=== PATIENT | male | born 1990 | race Two or more races ===

== ENCOUNTER 2024-06-14 11:37 | Emergency (ER) | payer MEDICAID, SELFPAY ==
[2024-06-14 11:37] VITALS: BMI 36.0
[2024-06-14 11:49] VITALS: BP 125/81; PULSE 67; RESP 18; TEMP 36.9; O2SAT 95
--- NOTE | 2024-06-14 12:50 | XR_ITS ---
Examination: PA lateral chest 2 views TECHNIQUE: Upright PA lateral chest 2 views Exam date and time: June 14, 2024 1307 hours INDICATIONS: Coughing today. FINDINGS: Normal heart size Lungs are clear. The osseous structures are intact IMPRESSION: No active disease
--- NOTE | 2024-06-14 12:51 | EDNOTE_ITS ---
Upper Respiratory Inf. RME/HPI General Chief Complaint: Flu Like Symptoms Stated Complaint: SHORTNESS OF BREATH Time Seen by Provider: 06/14/24 11:51 Arrival date/time: 06/14/24 11:37 RME / HPI RME / HPI Narrative: 34-year-old male patient came in for evaluation regarding cough. Patient is a chronic smoker, decided to stop smoking today. Because for the last 6 months has been having worsening cough and for the last few days he noticed some blood streak on the sputum. Denies any chest pain denies any fever denies any shortness of breath. Denies any other complaints. Related Data Home Medications ?Medication ?Instructions ?Recorded ?Confirmed divalproex 500 mg tablet,delayed 500 mg PO BID #0 tabs 01/27/14 08/19/18 release (Depakote) Previous Rx's ?Medication ?Instructions ?Recorded baclofen 5 mg tablet 5 mg PO BID PRN muscle spasm #20 11/04/23 tabs Allergies Allergy/AdvReac Type Severity Reaction Status Date / Time No Known Allergies Allergy Verified 06/14/24 11:41 Review of Systems Review of Systems Narrative Review of Systems: Review of system reviewed and within normal limits except mentioned in HPI ED Exam Narrative Physical exam: VITAL SIGNS: Reviewed. GENERAL APPEARANCE: Alert and interactive, follows commands, no acute distress, HEAD AND FACE: Non-traumatic. ENT: PERRL, pink conjunctivitis, eyelid no trauma, Mucous membrane moist. NECK: Supple, nontender, no nuchal rigidity. CHEST: No tenderness, no crepitus, no paradoxical movement, no retractions. LUNGS: Clear, well ventilated, symmetric, no rales, no wheezing, no ronchi, no stridor, good breath sounds bilaterally. HEART: Regular rate, regular rhythm, no murmur, no gallops. ABDOMEN: Soft, positive bowel sounds, nondistended, no guarding, nontender, no rebound, no masses, RECTAL: Deferred. GENITAL: Deferred. NEUROLOGICAL: Gross motor function intact sensory function intact, Appropriate for age. MUSCULOSKELETAL: low back nontender, full range of motion. EXTREMITIES: Nontender, full range of motion. SKIN: Color pink, dry, no rash, no lacerations, no abrasions, no contusions. LYMPHATICS: Deferred. Course Quality Measures none Orders Category Date Time Status XR chest 2V Stat Exams 06/14/24 12:50 Completed Vital Signs Vital signs: Vital Signs Temperature 98.4 F 06/14/24 11:49 Pulse Rate 67 06/14/24 11:49 Respiratory Rate 18 06/14/24 11:49 Blood Pressure 125/81 06/14/24 11:49 Pulse Oximetry (%) 95 06/14/24 11:49 Oxygen Delivery Method Room Air 06/14/24 11:49 Upper Respiratory Infection MDM Narrative MDM Narrative:: 34-year-old male patient came in for evaluation regarding cough. Patient is a chronic smoker, decided to stop smoking today. Because for the last 6 months has been having worsening cough and for the last few days he noticed some blood streak on the sputum. Denies any chest pain denies any fever denies any shortness of breath. Denies any other complaints. Patient chest x-ray came back unremarkable. Results discussed with the patient. Patient was advised to stop completely smoking cigarettes. Patient appears nontoxic and hemodynamically stable. Patient discharged home and instructed to follow-up with primary care provider in 24 to 48 hours. Instructed to return to the emergency department immediately if worsening of symptoms Patient data External records reviewed:: None Clinical information provided by:: none Social determinants that could affect healthcare access:: none Patient has the following chronic illnesses:: Cigarette smoker How is presenting disease/condition affected by chronic disease/condition?: exacerbated by Evaluation data The following diagnostics were reviewed and interpreted by me:: radiology exam(s) Lab and/or radiology exams considered but not ordered:: None Interpretation Summary: I personally reviewed and interpreted the x-ray of this patient. There is no a cute abnormalities found, no infiltrates no pneumothorax no hemothorax normal chest x-ray. Review of other structures was without significant abnormal findings also. I additionally reviewed the radiologist report and agree with the interpretation. Medications / Prescriptions Medications or Prescriptions considered but not ordered:: None Medication administrations:: None Consultations Consultation(s) initiated? (list below): No Diagnosis Upper Respiratory Differential Diagnosis: upper respiratory infection, viral infection and bronchitis Most likely diagnosis given after review of the tests above:: Smoker's cough Admission Indicated Admission indicated?: not indicated Admission Request Was there a request for admission?: No Disposition Plan Disposition Plan: Discharge Discharge Attestation Discharge Attestation: The patient was given an opportunity to ask questions and understood the discharge instructions. Discharge instructions specifically effects, indications for sooner follow up or return to the emergency department, and the expected course of current diagnosis. Patient condition: Stable Discharge Plan Plan Patient Disposition: HOME (Self Care) Disposition Comment: Stable Prescriptions/Referrals Prescriptions/Med Rec: No Action divalproex [Depakote] 500 MG tablet,delayed release (DR/EC) 500 mg PO BID Qty: 0 baclofen 5 mg tablet 5 mg PO BID PRN (Reason: muscle spasm) Qty: 20 0RF Referrals: Pedro Luis Holcomb PA-C [Primary Care Provider] - In 1 week Problem List Clinical Impression: Smokers' cough Patient/Caregiver Discharge Instructions Discharge Activity: activity as tolerated Education Materials: Preventing Common Respiratory ... Additional Instructions: Thank you for the opportunity for serving you today. You are stable for disc harged . You are advised to: Follow-up with your PCP in 1 to 2 days Return to ED for worsening of symptoms Increase oral fluids Please stop smoking cigarettes and your cough will go away on its own Print Language: Setswana Stand Alone Forms: Chely Award Info., Patient Portal Info Letter AYAN/GAGE Supervising Physician ROSEMARY Supervising Physician: MD Antonia
== END 2024-06-14 15:40 | disposition home or self-care (01) ==
PROVIDERS: Emergency Provider Emergency Medicine; PCP Physician Assistant
DX: J41.0 Simple chronic bronchitis (principal); F17.200 Nicotine dependence, unspecified, uncomplicated
CPT/HCPCS: 71046; 99283

== ENCOUNTER 2024-09-29 10:19 | Emergency (ER) | payer MEDICAID, SELFPAY ==
[2024-09-29 10:19] VITALS: BMI 39.1
[2024-09-29 10:48] VITALS: BP 125/76; PULSE 55; RESP 18; TEMP 36.7; O2SAT 98
--- NOTE | 2024-09-29 10:52 | XR_ITS ---
Examination: Lumbar spine 3 views Technique one AP lateral coned lateral lower lumbar spine 3 views Date and time: September 29, 2024 1116 hrs. Indications: Patient fell 2 days ago with injury to the lower back, lower back pain. Findings: No acute lumbar fracture Minimal disc narrowing L5-S1 No spondylolisthesis Impression: No acute lumbar fracture
--- NOTE | 2024-09-29 10:55 | EDNOTE_ITS ---
ED Fall Injury RME/HPI General Chief Complaint: Fall Stated Complaint: LOWER BACK PAIN S/P FALL 5D AGO Time Seen by Provider: 09/29/24 10:52 Arrival date/time: 09/29/24 10:19 This is a case of 34-year-old male who came in in the emergency room due to lower back pain and injury history of present illness started 5 days prior to arrival in the emergency room patient was walking down to the stairs to step when the patient slipped and fell landed on his lower back since then patient is complaining of lower back pain denies any head neck chest or abdominal injury no loss of consciousness denies any numbness weakness tingling sensation incontinence to urine or stool Limitations: no limitations Related Data Home Medications ?Medication ?Instructions ?Recorded ?Confirmed divalproex 500 mg tablet,delayed 500 mg PO BID #0 tabs 01/27/14 08/19/18 release (Depakote) Previous Rx's ?Medication ?Instructions ?Recorded baclofen 5 mg tablet 5 mg PO BID PRN muscle spasm #20 11/04/23 tabs cyclobenzaprine 10 mg tablet 10 mg PO BID PRN muscle s pasm #10 09/29/24 tabs ibuprofen 800 mg tablet 800 mg PO Q8H PRN pain #20 t abs 09/29/24 Allergies Allergy/AdvReac Type Severity Reaction Status Date / Time No Known Allergies Allergy Verified 09/29/24 10:22 Review of Systems Review of Systems Systems Reviewed: All systems reviewed, normal except as documented Constitutional Constitutional: Reports system reviewed and no additional complaints, except as documented ENT Ears, Nose, Mouth, and Throat: Denies neck pain Cardiovascular Cardiovascular: Reports system reviewed and no additional complaints, except as documented Respiratory Respiratory: Reports system reviewed and no additional complaints, except as documented Gastrointestinal Gastrointestinal: Reports system reviewed and no additional complaints, except as documented and Denies abdominal pain Musculoskeletal Musculoskeletal: Reports system reviewed and no additional complaints, except as documented, Denies abnormal gait, Denies arthralgias, Denies atrophy, Reports back pain, Denies deformity, Denies joint swelling, Denies limited range of motion, Denies loss of height, Denies muscle cramps, Denies muscle weakness, Denies myalgias, Denies neck pain, Denies numbness, Denies radiating pain into limb, Denies stiffness and Denies tingling Neurologic Neurologic: Reports system reviewed and no additional complaints, except as documented, Denies abnormal gait, Denies numbness and Denies tingling Past Medical History Past Medical History NEUROLOGIC: Negative Cerebrovascular Accident, Alzheimer's Disease or Seizures CARDIAC: Negative Cardiac Disorders, Myocardial Infarction or Congestive Heart Failure RESPIRATORY: Negative Chronic Obstructive Pulmonary Disease (COPD) or Asthma GASTROINTESTINAL: Negative Gastrointestinal Disorders, Liver Cancer or Pancreatic Cancer GENITOURINARY: Negative Genitourinary Disorders or Renal Disease MUSCULOSKELETAL: Negative Musculoskeletal Disorders or Muscular Dystrophy ENT: Negative Blind or Deafness ENDOCRINE: Negative Diabetes Mellitus Type 1 or Diabetes Mellitus Type 2 HEMATOLOGIC: Negative Blood Disorders or Sickle Cell Disease PSYCHO/SOCIAL: Positive Psychiatric Problems, Recreational Drug Use, Bipolar Disorder, Depression, Anxiety, Self-Mutilation and Attention Deficit Hyperactivity Disorder OTHER HISTORY: Negative Developmental Delay, Blood Transfusions or Anesthesia Reactions Social History SMOKING STATUS: Current some day smoker SUBSTANCE USE: marijuana OCCUPATION: Works on [employer] Exam General Limitations: Present no limitations General appearance: Present alert and in no apparent distress Head Head exam: Present atraumatic Eye Eye exam: Present normal appearance, PERRL and EOMI ENT ENT exam: Present normal exam, normal oropharynx and mucous membranes moist Neck Neck exam: Present normal inspection, full ROM and trachea midline; Absent tenderness, meningismus, lymphadenopathy or thyromegaly Chest Chest inspection: Present normal inspection and symmetric chest wall rise Respiratory Respiratory exam: Present normal lung sounds bilaterally; Absent respiratory distress, wheezes, stridor, accessory muscle use or prolonged expiratory phase Cardiovascular Cardiovascular exam: Present regular rate, normal rhythm and normal heart sounds; Absent bradycardia, tachycardia, systolic murmur or diastolic murmur Abdominal Exam Abdominal exam: Present soft and normal bowel sounds; Absent distention, tenderness, guarding, rebound or rigidity Extremities Exam Extremities exam: Present normal inspection and full ROM Back Exam Back exam: Present normal inspection, full ROM and tenderness (Mild to moderate tenderness L1-L5 no paraspinal tenderness no paravertebral tenderness straight leg exam is negative and normal no CVA tenderness no crepitation no deformity no redness); Absent CVA tenderness (R), CVA tenderness (L), muscle spasm, paraspinal tenderness, vertebral tenderness, rashes, sciatic notch tenderness (R), sciatic notch tenderness (L), straight leg raise (R) or straight leg raise (L) Neurological Exam Neurological exam: Present alert, oriented X3, CN II-XII intact, normal gait and reflexes normal; Absent motor sensory deficit Psychiatric Psychiatric exam: Present normal affect and normal mood Skin Skin exam: Present warm, dry, intact and normal color Course Quality Measures none Orders Category Date Time Status XR lumbar spine 2-3V Stat Exams 09/29/24 10:52 Completed Ketorolac Inj [Toradol Inj] Med 09/29/24 11:53 Discontinued 30 mg IM X1 ONE Vital Signs Vital signs: Vital Signs Temperature 98.0 F 09/29/24 10:48 Pulse Rate 55 L 09/29/24 10:48 Respiratory Rate 18 09/29/24 10:48 Blood Pressure 125/76 09/29/24 10:48 Pulse Oximetry (%) 98 09/29/24 10:48 Oxygen Delivery Method Room Air 09/29/24 10:48 Oxygen saturation 98% in room air normal Fall MDM Narrative MDM Narrative:: This is a case of 34-year-old male who came in in the emergency room due to lower back pain and injury history of present illness started 5 days prior to arrival in the emergency room patient was walking down to the stairs to step when the patient slipped and fell landed on his lower back since then patient is complaining of lower back pain denies any head neck chest or abdominal injury no loss of consciousness denies any numbness weakness tingling sensation incontinence to urine or stool physical examination patient is awake alert oriented not in distress nontoxic looking mild to moderate tenderness on the lumbar area no crepitation no deformity no swelling no redness no paravertebral tenderness no paraspinal tenderness leg raise exam is normal no CVA tenderness x-ray of the lumbar area no fracture no dislocation no subluxation but with DDD lumbar patient was given Toradol here in the emergency room which patient condition markedly improved patient was advised to follow-up with PCP to be referred to neurosurgeon for DDD lumbar for possible MRI to rule out herniated disc and warm compress cold compress as advised as needed for pain at the time of exam no signs and symptoms of cauda equina no numbness no weakness no tingling sensation no incontinence to urine or stool Patient was discharged with comfortable condition walking with stable gait. Patient verbalized no further complains explained diagnosis and answered patient question. Patient is comfortable with the proposed management plan including the need to follow up with his/her primary care physician and any specialist if applicable Discussed patient for any urgent condition or worsening sx, He/She needed to go to emergency room immediately or call 911. Patient acknowledge the responsibility to follow up as instructed and to monitor her/his symptoms. For any persistence of the symptoms for more than 3-5 days return precaution advised. Discussed the result of the test and was given printed discharge instruction Patient data External records reviewed:: [facility] previous records Clinical information provided by:: none Social determinants that could affect healthcare access:: none Patient has the following chronic illnesses:: None How is presenting disease/condition affected by chronic disease/condition?: no chronic disease Evaluation data The following diagnostics were reviewed and interpreted by me:: radiology exam(s) Lab and/or radiology exams considered but not ordered:: Reviewed Interpretation Summary: Reviewed Medications / Prescriptions Medications or Prescriptions considered but not ordered:: Given Medication administrations:: Medication Administration History Discontinued Medications Ketorolac Tromethamine (Ketorolac Inj 60 Mg/2 Ml Vial) 30 mg IM X1 ONE Stop: 09/29/24 11:54 Given Consultations Consultation(s) initiated? (list below): No Diagnosis Fall Differential Diagnosis: other (Lumbar spine) Most likely diagnosis given after review of the tests above:: Lumbar spine Admission Indicated Admission indicated?: not indicated Explain why admission is indicated or not indicated:: Not indicated Admission Request Was there a request for admission?: No Admission Attestation Admission request attestation: Not indicated Disposition Plan Disposition Plan: Discharge Discharge Attestation Discharge Attestation: The patient and all family members were given an opportunity to ask questions and understood the discharge instructions. Discharge instructions specifically effects, indications for sooner follow up or return to the emergency department, and the expected course of current diagnosis. Patient condition: Stable Discharge Plan Plan Patient Disposition: HOME (Self Care) Patient condition on transfer: Stable Prescriptions/Referrals Prescriptions/Med Rec: New ibuprofen 800 mg tablet 800 mg PO Q8H PRN (Reason: pain) Qty: 20 0RF cyclobenzaprine 10 mg tablet 10 mg PO BID PRN (Reason: muscle spasm) Qty: 10 0RF Rx Instructions: Do not drive No Action divalproex [Depakote] 500 MG tablet,delayed release (DR/EC) 500 mg PO BID Qty: 0 baclofen 5 mg tablet 5 mg PO BID PRN (Reason: muscle spasm) Qty: 20 0RF Problem List Clinical Impression: Lumbar sprain, DDD (degenerative disc disease), lumbar Patient/Caregiver Discharge Instructions Education Materials: Staff Ed: Back Safety, ED Back Sprain/Strain Additional Instructions: Follow-up with your primary care physician in 2 days for reevaluation and to be referred to neurosurgeon for further evaluation and treatment of your DDD lumbar for possible MRI to rule out herniated disc worsening symptoms or any emergent concerns such as numbness weakness tingling sensation incontinence to urine or stool call 911 or go to the nearest emergency room ice pack and warm compress as needed Print Language: [place] Citizen Stand Alone Forms: Chely Award Info., Patient Portal Info Letter PA/VENETIAN [employer] WORK[employer] Supervising Physician PA/[employer]IAN [employer] WORK[employer] Supervising Physician: dr barnes
[2024-09-29] MEDS: KETOROLAC INJ 60 MG/2 ML VIAL 30 MG IM (12:00)
[2024-09-29 12:06] VITALS: BP 136/70; PULSE 77; RESP 20; TEMP 36.7; O2SAT 97
== END 2024-09-29 12:06 | disposition home or self-care (01) ==
LOC: SERX 12:08
PROVIDERS: Emergency Provider Family Medicine; PCP Family Medicine
DX: S33.5XXA Sprain of ligaments of lumbar spine, initial encounter (principal); M51.360 Other intervertebral disc degeneration, lumbar region with discogenic back pain only; W01.0XXA Fall on same level from slipping, tripping and stumbling without subsequent striking against object, initial encounter; Y93.01 Activity, walking, marching and hiking
CPT/HCPCS: 72100; 96372; 99283; J1885

== ENCOUNTER 2024-11-10 22:25 | Emergency (ER) | payer MEDICAID, SELFPAY ==
[2024-11-10 22:26] VITALS: BMI 39.5
[2024-11-10 22:36] VITALS: BP 151/95; PULSE 93; RESP 20; TEMP 36.8; O2SAT 97
--- NOTE | 2024-11-10 22:41 | PD.EDPSYCH ---
ED Psych RME/HPI General Chief Complaint: Psychiatric Symptoms Stated Complaint: SUICIDAL THOUGHTS Time Seen by Provider: 11/10/24 23:03 Arrival date/time: 11/10/24 22:25 RME / HPI RME / HPI Narrative: This section includes all my notes and documentations, including HPI, PE, and ED course. Kei Sanchez MD HPI: 34yo male here for agitation, hallucinations, and SI. Mom states the patient has been progressively more agitated for the last one week. Patient vocalized having SI today, stating he wants to hang himself or harm himself with a knife. He does have HI. Mom notes the patient has been more paranoid and is not taking his psychiatric medications (Depakote and Abilify). Patient has been coughing. He is a heavy tobacco smoker and last used methamphetamines 3 days ago. No other complaints reported. ROS: All negative except as documented in HPI. Physical Exam: General: Alert and oriented. Severely agitated. Eyes: Conjunctivae and lids clear. ENT: No nasal congestion. Neck: Supple. Heart: RRR. Lungs: No respiratory distress. Good air movement. No rhonchi, wheezing, rales. Abdomen: Soft and nontender. Normal bowel sounds. No distension. No rebound or guarding. Back: No CVA tenderness. Skin: Warm and dry. Neuro: Alert and oriented X 3. Blood test unremarkable. Urine specimen pending. Treatment here included Xanax. Patient slept during the rest of my shift. Patient placed on 1799 hold. Entered order for evaluation by our ED Neighborhood Planner. At 6 AM on 11/11/2024, the care of the patient was transferred to Dr. Ordoñez. Kei Sanchez MD Related Data Home Medications ?Medication ?Instructions ?Recorded ?Confirmed divalproex 500 mg tablet,delayed 500 mg PO DAILY #0 tabs 01/27/14 11/10/24 release (Depakote) aripiprazole 10 mg tablet 10 mg PO DAILY 11/10/24 11/10/24 Allergies Allergy/AdvReac Type Severity Reaction Status Date / Time No Known Allergies Allergy Verified 11/10/24 22:32 Review of Systems Review of Systems Systems Reviewed: All systems reviewed, normal except as documented Past Medical History Past Medical History NEUROLOGIC: Negative Cerebrovascular Accident, Alzheimer's Disease or Seizures CARDIAC: Negative Cardiac Disorders, Myocardial Infarction or Congestive Heart Failure RESPIRATORY: Negative Chronic Obstructive Pulmonary Disease (COPD) or Asthma GASTROINTESTINAL: Negative Gastrointestinal Disorders, Liver Cancer or Pancreatic Cancer GENITOURINARY: Negative Genitourinary Disorders or Renal Disease MUSCULOSKELETAL: Negative Musculoskeletal Disorders or Muscular Dystrophy ENT: Negative Blind or Deafness ENDOCRINE: Negative Diabetes Mellitus Type 1 or Diabetes Mellitus Type 2 HEMATOLOGIC: Negative Blood Disorders or Sickle Cell Disease PSYCHO/SOCIAL: Positive Psychiatric Problems, Recreational Drug Use, Bipolar Disorder, Depression, Anxiety, Self-Mutilation and Attention Deficit Hyperactivity Disorder OTHER HISTORY: Negative Developmental Delay, Blood Transfusions or Anesthesia Reactions Social History SMOKING STATUS: Current every day smoker SUBSTANCE USE: marijuana OCCUPATION: Works on [employer] ED Exam Narrative Physical exam: As noted in HPI. Course Quality Measures none Orders Category Date Time Status 1798 Psychiatric Hold NOW Care 11/10/24 23:45 Ordered Bedside COVID-19 Antigen Test NOW Care 11/10/24 23:33 Active Bedside Influenza A&B Antigen Test NOW Care 11/10/24 23:[address] Screening NOW Care 11/10/24 23:33 Active Referral Psych Eval Stat Cons 11/10/24 23:[address] chest w con Stat Exams 11/10/24 23:33 Ordered Acetaminophen Stat Lab 11/10/24 23:15 Completed Alcohol, Blood Medical Stat Lab 11/10/24 23:15 Completed Bilirubin,Direct Stat Lab 11/10/24 23:15 Completed CBC Stat Lab 11/10/24 23:15 Completed CMP [Comprehensive Metabolic Panel] Stat Lab 11/10/24 23:15 Completed Drug Screen,Urine Stat Lab 11/10/24 23:34 Ordered Free T4 (Free Thyroxine) Stat Lab 11/10/24 23:15 Completed Magnesium Stat Lab 11/10/24 23:15 Completed PTT [Partial Thromboplastin Time] Stat Lab 11/10/24 23:15 Completed Salicylate Stat Lab 11/10/24 23:15 Completed UA, C/S IF [Urinalysis, C/S if Indicated] Stat Lab 11/10/24 23:34 Ordered ALPRazoLAM [Xanax] Med 11/10/24 23:57 Discontinued 2 mg PO X1 ONE Vital Signs Vital signs: Vital Signs Temperature 98.3 F 11/10/24 22:36 Pulse Rate 93 11/10/24 22:36 Respiratory Rate 20 11/10/24 22:36 Blood Pressure 151/95 H 11/10/24 22:36 Pulse Oximetry (%) 97 11/10/24 22:36 Oxygen Delivery Method Room Air 11/10/24 22:36 Psych MDM Narrative MDM Narrative:: 34yo male here for agitation, hallucinations, and SI. Mom states the patient has been progressively more agitated for the last one week. Patient vocalized having SI today, stating he wants to hang himself or harm himself with a knife. He does have HI. Mom notes the patient has been more paranoid and is not taking his medications (Depakote and Abilify). Patient has been coughing. He is a heavy tobacco smoker and last used methamphetamines 3 days ago. No other complaints reported. Patient data External records reviewed:: [facility] previous records (Per chart review, patient was seen here on 09/29/24 for DDD (degenerative disc disease), lumbar.) Clinical information provided by:: patient Social determinants that could affect healthcare access:: other (specify) (tobacco and methamphetamine use; history of schizophrenia and bipolar disorder) Patient has the following chronic illnesses:: bipolar disorder, schizophrenia, ADHD, depression How is presenting disease/condition affected by chronic disease/condition?: caused by Evaluation data The following diagnostics were reviewed and interpreted by me:: lab results Lab and/or radiology exams considered but not ordered:: none Interpretation Summary: Blood tests unremarkable. Urine specimen pending. Medications / Prescriptions Medications or Prescriptions considered but not ordered:: none Medication administrations:: Medication Administration History Discontinued Medications Alprazolam (Alprazolam 0.25 Mg Tablet) 2 mg PO X1 ONE Stop: 11/10/24 23:58 Last Admin: 11/11/24 00:13 Dose: 2 mg Documented By: ZAC Xanax Consultations Consultation(s) initiated? (list below): No Diagnosis Psych Differential Diagnosis: acute psychosis, chronic schizophrenia, suicidal ideation, bipolar disorder, depression, drug-induced psychotic disorder and acute anxiety Most likely diagnosis given after review of the tests above:: Psychosis versus Blanca. Admission Indicated Admission indicated?: not indicated Explain why admission is indicated or not indicated:: No psychiatric service here at this facility. Admission Request Was there a request for admission?: No Disposition Plan Disposition Plan: other (specify) (Signed out to Dr. Ordoñez at 6 AM.) Discharge Plan Prescriptions/Referrals Prescriptions/Med Rec: No Action divalproex [Depakote] 500 MG tablet,delayed release (DR/EC) 500 mg PO DAILY Qty: 0 aripiprazole 10 mg tablet 10 mg PO DAILY Referrals: No Primary/Family,Physician [Primary Care Provider] - In 1 week Problem List Clinical Impression: Acute psychosis Patient/Caregiver Discharge Instructions Print Language: Romanian
--- NOTE | 2024-11-10 23:20 | PC.NURSE ---
PT BROUGHT IN BY MOM FOR FEELING SUICIDAL. PT IS NOT MED COMPLIANT AND HE USED METH 3 DAYS AGO. HE REPORTS BEING HOSPITALIZED FOR 15 DAYS AT [facility] IN 2011. PT STATES HE USED TO USE DRUGS REGULARLY, BUT WAS CLEAN UP UNTIL 3 DAYS AGO.
--- NOTE | 2024-11-10 23:26 | PC.NURSE ---
1:1 SITTER AT BEDSIDE
--- NOTE | 2024-11-10 23:33 | XR_ITS ---
Examination: CT chest with intravenous contrast 2-D sagittal and coronal reconstructions Exam date and time: November 11, 2024, 0226 hours INDICATIONS: Chest pain shortness of breath today CTDI:vol (mGy) 16.5 DLP: (mGycm) 597 Technique: Multiple axial sections of the thorax have been obtained. Sections have been obtained, 3 mm slice thickness. Mediastinal and lung density settings have been obtained. Intravenous contrast administered, 60 cc Isovue 370. 2-D sagittal, coronal images obtained. Low dose protocols were performed. One or more of the following dose reduction techniques were used; automated exposure control, adjustment of the mA and/or KV according to patient size, use of iterative reconstruction technique. Findings: No thoracic aortic aneurysmal dilatation No pulmonary artery filling defects No paratracheal tracheobronchial or bronchopulmonary adenopathy. No pneumonia or pulmonary edema or pleural disease 2 mm pulmonary nodule right lower lobe Diffuse fatty infiltration throughout the liver No gallstones No pancreatic mass, no hydronephrosis IMPRESSION: Negative for pulmonary artery emboli No pneumonia, pulmonary edema or pleural disease 2 mm pulmonary nodule right lower lobe, recommend three-month follow-up PA lateral chest x-ray
[2024-11-11 00:03] LABS: Basophils # (Auto) 0.1 Thou/mm3 (0.0-0.2); Basophils % (Auto) 1 % (0-2.5); Eosinophils # (Auto) 0.4 Thou/mm3 (0.0-0.5); Eosinophils % (Auto) 4 % (0-10); Hematocrit 42.2 % (41.0-53.0); Hemoglobin 14.5 g/dL (13.5-16.0); Immature Granulocytes Auto 0.05 Thou/mm3 (0.00-0.00); Lymphocytes # (Auto) 2.8 Thou/mm3 (1.0-4.8); Lymphocytes % (Auto) 32 % (10-50); Mean Corpuscular HGB Conc 34.4 g/dl (31.0-37.0); Mean Corpuscular Hemoglobin 31.9 pg (25.0-35.0); Mean Corpuscular Volume 93 fL (80-100); Monocytes # (Auto) 0.9 Thou/mm3 (0.0-0.8); Monocytes % (Auto) 10 % (0-12); Neutrophils # (Auto) 4.5 Thou/mm3 (1.8-7.7); Neutrophils % (Auto) 52 % (37-80); Nucleated Red Blood Cell # 0.00 Thou/mm3 (0.00-0.00); Nucleated Red Blood Cell % 0 /100 WBC (0); Platelet Count 217 Thou/mm3 (140-440); RDW Standard Deviation 42.4 fL (35.1-43.9); Red Blood Count 4.55 Miln/mm3 (4.50-5.90); White Blood Count 8.6 Thou/mm3 (3.8-10.6)
[2024-11-11 00:20] LABS: Partial Thromboplastin Time 28.5 Seconds (22.0-36.0)
[2024-11-11 00:30] LABS: Acetaminophen < 2.0 mcg/mL (10.0-20.0); Alanine Aminotransferase 50 U/L (10-49); Albumin, Serum 4.4 gm/dL (3.5-5.0); Albumin/Globulin Ratio 1.9 (1.2-2.2); Alcohol, Blood Medical < 3.0 mg/dL (0-10.0); Alkaline Phosphatase 51 U/L (46-116); Anion Gap 8 (7-16); Aspartate Amino Transferase 33 U/L (0-34); BUN/Creatinine Ratio 10 Ratio (12-20); Bilirubin,Direct 0.1 mg/dL (0.0-0.3); Bilirubin,Total 0.4 mg/dL (0.3-1.2); Blood Urea Nitrogen 9 mg/dL (9-23); Calcium 9.4 mg/dL (8.3-10.6); Calcium (Corrected) 9.4 mg/dL (8.5-10.1); Carbon Dioxide 23.9 mMol/L (20.0-31.0); Chloride 110 mMol/L (98-107); Creatinine (Component) 0.9 mg/dL (0.6-1.3); Estimated Creatinine Clearance 144.3 mL/min (>60); Free T4 (Free Thyroxine) 1.05 ng/dL (0.89-1.76); Globulin 2.3 gm/dL (2.3-3.5); Glucose 102 mg/dL (74-106); Magnesium 1.8 mg/dL (1.6-2.6); Osmolality,Calculated 281 (275-295); Potassium 3.9 mMol/L (3.4-5.1); Salicylate < 3.0 mg/dL; Sodium 142 mMol/L (136-145); Total Protein 6.7 gm/dL (5.7-8.2); eGFR > 60 See Note
[2024-11-11 02:37] LABS: Collection Type, Urine Clean Catch; WBC,Urine 0 /hpf (0-5)
[2024-11-11 02:40] VITALS: BP 131/80; PULSE 75; RESP 18; TEMP 36.5; O2SAT 97
[2024-11-11 03:02] LABS: Bilirubin,Urine Negative (Negative); Blood,Urine Negative (Negative); Clarity,Urine Clear (Clear/Hazy); Color,Urine Lt-Yellow (Lt Yel-Yel); Culture Indicated,Urine Not Indicated; Glucose, Urine Negative (Negative); Ketones,Urine Negative (Negative); Leukocyte Esterase,Urine Negative (Negative); Nitrite,Urine Negative (Negative); PH,Urine 6.0 (5.0-7.0); Protein,Urine Negative (Neg - Trace); RBC,Urine 1 /hpf (0-3); Specific Gravity,Urine 1.008 (1.001-1.035); Squamous Epithelial Cell,Urine < 1 /hpf (0-5); Urobilinogen,Urine Negative mg/dL (0.0-1.0)
[2024-11-11 03:12] LABS: Amphetamine/Methamp Scrn,U Negative (Negative); Barbiturate Screen,Urine Negative (Negative); Benzodiazepines Screen,Urine Positive (Negative); Benzoylecgonine Screen, Ur Negative (Negative); Fentanyl Screen,Urine Negative (Negative); Opiate Screen,Urine Negative (Negative); THC Screen,Urine Positive (Negative)
--- NOTE | 2024-11-11 03:15 | PRELIM_ITS ---
CT scan of the chest with intravenous contrast (axial sections with sagittal and coronal reformats) November 11, 2024 0226 hours Clinical History: SOB Comparison: None. Findings: There is no filling defect within the pulmonary artery divisions to suggest pulmonary thromboembolism. The mediastinum demonstrates no evidence of mass or lymphadenopathy. The thoracic aorta is unremarkable. There is no pericardial effusion. The lungs are clear. No evidence of pleural effusion or pneumothorax. The osseous structures are unremarkable. Hepatomegaly. Impression: No CT evidence of pulmonary thromboembolism or other acute intrathoracic pathology. Hepatomegaly. Report Electronically Signed By: Theo Santos 11/11/2024 3:14:30 AM [EST]
[2024-11-11 06:41] VITALS: BP 132/68; PULSE 63; RESP 18; TEMP 36.4; O2SAT 95
--- NOTE | 2024-11-11 07:00 | PC.NURSE ---
PT SLEEPING AT THI TIME AND WILL ALLOW PT TO SLEEP
--- NOTE | 2024-11-11 07:01 | PD.EDADDENDU ---
Emergency Room Addendum Addendum Narrative: 0600: Care assumed from Dr. Sanchez, the previous shift emergency physician. Past medical, surgical, social and family history reviewed. Vitals and home medications reviewed. I will assume the care of the patient at this time, pending mental health evaluation. Please refer to the emergency department record for history and examination from initial visit.?The following addendum documentation note is intended to reflect any pending information, findings, or radiology results not included in the patient?s initial chart. 0700: Patient has been medically cleared for mental health evaluation. 0850: SW has met with and evaluated the patient. At this time patient placed on a 5150 hold pending LPS facility placement. Patient has been accepted for transfer by Dr. Patterson at [facility]. 1600: EMS here to transfer patient. He has remained stable through ED course.
--- NOTE | 2024-11-11 08:14 | PC.NURSE ---
LICENSED EMBALMER IN TO SEE PT AT 0800 AND STATES KEEPING PT ON 5150 HOLD. PT WALKED TO AND FROM BATHROOM WITHOUT ASSIST WITH SITTER WALKING WITH HIM. GIVEN MEAL TRAY. WHEN ASKED PT WHY HE'S HERE, PT STARTS TALKING ABOUT NO ONE LISTENS TO ME. MY BROTHER IS A TOP TRIMMER AND I HOPE HE GETS ATTACKED. I DON'T WANT TO ALONE. MY FIANCEE LEFT ME AND MY GIRL FRIEND LEFT ME, I DON'T KNOW WHY. THEY TELL ME TO CLEAN UP AND YELL AT ME ALL THE TIME AND I JUST WANT A JOB. I'VE BEEN OUT OF WORK FOR A YEAR AND NO ONE WILL HIRE ME. PT WAS VERY LOUD AND ANGRY. WOULD NOT LOOK NURSE IN THE FACE.
[2024-11-11 08:42] VITALS: BP 116/80; PULSE 59; RESP 18; TEMP 36.4; O2SAT 96
--- NOTE | 2024-11-11 08:46 | PC.CC ---
Pt is a 23-year-old male who presented to the ER on 11/11/2024 requesting a voluntary mental health evaluation. ASW-Maria D Mukherjee met with patient [id number] to complete assessment. ASW introduced self, role, and reason for assessment. ASW disclosed limits of confidentiality as well. Patient appeared alert and oriented to self, place, and situation. Patient was pleasant; his mood appeared angry and emotional accompanied with crying; his behavior appeared dye and upset that no one is paying attention to his triggers. . Patient?s thought process was linear and organized. Pt was viewed to be paranoid and delusional. Pt reports that he is diagnosed with Bipolar II and should be taking Depakote and Abilify as that was prescribed by his PCP Dr. Mcconnell at [facility]. Pt states he does not see a mental health therapist for his mental issues. Pt admits to smoking Meth a few days ago and admits to smoking marijuana daily, as well as drinking beer. Pt reports what led him to the hospital last night is that his thoughts of suicide were explosive and he could not control it. He reported he was pacing in and outside of his home, yelling and talking to himself saying he was going to shoot himself. Because he continued to make those statements, his grandfather locked the firearm in a case and there is only one child to the case, which the grandfather has. Pt stated that he then told his family he was going to slash his throat. Pt reports his family kept on telling him to shut the fuck up and were laughing at him, which he states made his symptoms worse. Pt reports people are watching him and laughing at him. Pt denies AVH. Pt stated, I'm going to show them how much they will miss me by blowing my brains out and I will do it!: Pt reported that in 2019 his then girlfriend suicided and since then he feels his mental health has declined. Pt reports loss of employment which makes him feel worthless and hopeless. Pt reports he has nothing to live for and wishes he was not here anymore. Pt states he is unwilling to safety plan and will end his life by slashing his throat. Pt reports he has no reason to live and does not name any deterrents to keep him alive. ASW staffed with MANAGER ORDER, Director Valerie Nice and it was determined that the best course of action will be to place the pt on a 5150 Hold and search for LPS placement. ASW spoke with ER provider and he agreed. Assigned RN is aware. ASW called collateral and she reported confirmed all that was reported. Collateral reported that she is not willing to safety plan with the pt as she fears he is serious this time and has extensive h/o SI. Collateral reports he is not taking his medications and states the pt uses marijuana daily. Collateral reports the pt has been isolating more than usual and admitted that he is in a deep depression. ASW will search for LPS placement and place pt on a 5150 Hold for Danger to Self. It should be known pt amubaltes on his own and does all his ADL's his self. Pt does not use DME and is his own decision maker.
--- NOTE | 2024-11-11 09:00 | PC.CC ---
Addendum entered by Maria D Mukherjee 11/11/24 12:41: p/U eta 1600 Accepted to [facility]/5150 Nurse to Nurse [phone] Addendum entered by Maria D Mukherjee 11/11/24 12:17: Symron from [facility] called to provide acceptance. Pt accepted at 1159; Dr Patterson accepting, [address], will take jalen. Nurse to Nurse [phone]. ASW will arrange transportation Addendum entered by Maria D Mukherjee 11/11/24 09:52: ASW submitted to [facility] [place] for LPS placement. Original Note: Pt is a 23-year-old male who presented to the ER on 11/11/2024 requesting a voluntary mental health evaluation. ASW-Maria D Mukherjee met with patient [id number] to complete assessment. ASW introduced self, role, and reason for assessment. ASW disclosed limits of confidentiality as well. Patient appeared alert and oriented to self, place, and situation. Patient was pleasant; his mood appeared angry and emotional accompanied with crying; his behavior appeared dye and upset that no one is paying attention to his triggers. . Patient?s thought process was linear and organized. Pt was viewed to be paranoid and delusional. Pt reports that he is diagnosed with Bipolar II and should be taking Depakote and Abilify as that was prescribed by his PCP Dr. Mcconnell at [facility]. Pt states he does not see a mental health therapist for his mental issues. Pt admits to smoking Meth a few days ago and admits to smoking marijuana daily, as well as drinking beer. Pt reports what led him to the hospital last night is that his thoughts of suicide were explosive and he could not control it. He reported he was pacing in and outside of his home, yelling and talking to himself saying he was going to shoot himself. Because he continued to make those statements, his grandfather locked the firearm in a case and there is only one child to the case, which the grandfather has. Pt stated that he then told his family he was going to slash his throat. Pt reports his family kept on telling him to shut the fuck up and were laughing at him, which he states made his symptoms worse. Pt reports people are watching him and laughing at him. Pt denies AVH. Pt stated, I'm going to show them how much they will miss me by blowing my brains out and I will do it!: Pt reported that in 2019 his then girlfriend suicided and since then he feels his mental health has declined. Pt reports loss of employment which makes him feel worthless and hopeless. Pt reports he has nothing to live for and wishes he was not here anymore. Pt states he is unwilling to safety plan and will end his life by slashing his throat. Pt reports he has no reason to live and does not name any deterrents to keep him alive. ASW staffed with [facility], Director Valerie Nice and it was determined that the best course of action will be to place the pt on a 5150 Hold and search for LPS placement. ASW spoke with ER provider and he agreed. Assigned RN is aware. ASW called collateral and she reported confirmed all that was reported. Collateral reported that she is not willing to safety plan with the pt as she fears he is serious this time and has extensive h/o SI. Collateral reports he is not taking his medications and states the pt uses marijuana daily. Collateral reports the pt has been isolating more than usual and admitted that he is in a deep depression. ASW will search for LPS placement and place pt on a 5150 Hold for Danger to Self. It should be known pt amubaltes on his own and does all his ADL's his self. Pt does not use DME and is his own decision maker.
[2024-11-11 12:49] VITALS: BP 146/90; PULSE 44; RESP 18; TEMP 36.5; O2SAT 97
[2024-11-11 15:08] VITALS: BP 156/97; PULSE 45; RESP 17; TEMP 36.4; O2SAT 97
--- NOTE | 2024-11-11 15:53 | PC.NURSE ---
REPORT GIVEN TO [facility]
== END 2024-11-11 16:03 ==
PROVIDERS: Emergency Medicine; Emergency Provider Emergency Medicine
DX: F23 Brief psychotic disorder (principal); R16.0 Hepatomegaly, not elsewhere classified; R91.1 Solitary pulmonary nodule
CPT/HCPCS: 36415; 71260; 80053; 80307; 80320; 80329; 81001; 82248; 83735; 84439; 85025; 85730; 87400; 87811; 96127; 99284; A4649; Q9967; A9270; G0480